=== PATIENT | female | born 1980 | race Caucasian/White ===

== ENCOUNTER 2019-07-11 22:16 | Emergency (ER) | payer OTHER ==
[~2019-07-11] VITALS: Ht 157.5 cm; Wt 75.8 kg
[2019-07-12] MEDS ORDERED: DEXAMETHASONE 4 MG TABLET PO ONE
[2019-07-12 00:12] LABS: RAPID INFLUENZA A POSITIVE (Negative); RAPID INFLUENZA B Negative (Negative)
[2019-07-12 00:43] VITALS: BP 117/75
== END 2019-07-12 00:45 | disposition home or self-care (01) ==
LOC: ED 07-12 00:30
DX: J10.1 Influenza due to other identified influenza virus with other respiratory manifestations (principal)
CPT/HCPCS: 71046; 87400; 99284